=== PATIENT | female | born 1965 | race African-American/Black ===

== ENCOUNTER 2023-08-22 07:56 | Outpatient (REF) | payer OTHER, SELFPAY ==
--- NOTE | ~2023-08-22 | XR_ITS ---
EXAMINATION: XR SHOULDER, LEFT CLINICAL INFORMATION: Pain. COMPARISON: None available. TECHNIQUE: AP external rotation, Grashey, scapular Y, and axillary views of the left shoulder. FINDINGS: No evidence of acute fracture. Glenohumeral and acromioclavicular alignment is anatomic with normal joint space. No abnormal soft tissue calcifications. No suspicious findings in the visualized left lung. XR/XR shoulder LT min 2V IMPRESSION: No acute osseous abnormality.
== END 2023-08-22 07:57 | disposition home or self-care (01) ==
LOC: HO.HOSX 07:56
PROVIDERS: Visit Provider Physician Assistant
DX: M75.102 Unspecified rotator cuff tear or rupture of left shoulder, not specified as traumatic (principal); Z87.828 Personal history of other (healed) physical injury and trauma
CPT/HCPCS: 73030

== ENCOUNTER 2023-08-22 13:25 | Outpatient (AMB) | payer OTHER, SELFPAY ==
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
[2023-08-22 14:16] VITALS: BMI 24.6
== END 2023-08-22 14:37 | disposition home or self-care (01) ==
PROVIDERS: PCP Internal Medicine; Visit Provider Physician Assistant
DX: M75.102 Unspecified rotator cuff tear or rupture of left shoulder, not specified as traumatic (principal)
CPT/HCPCS: 99204

== ENCOUNTER 2023-10-03 13:32 | Outpatient (AMB) | payer OTHER, SELFPAY ==
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
== END 2023-10-03 13:58 | disposition home or self-care (01) ==
PROVIDERS: PCP Internal Medicine
DX: R20.0 Anesthesia of skin (principal); M77.12 Lateral epicondylitis, left elbow; Y03.0XXA Assault by being hit or run over by motor vehicle, initial encounter; Z04.3 Encounter for examination and observation following other accident
CPT/HCPCS: 99213

== ENCOUNTER → 2023-10-03 13:32 | Outpatient (BNVA) | payer OTHER, SELFPAY | PROVIDERS: PCP Internal Medicine ==

== ENCOUNTER 2023-11-03 10:51 | Outpatient (REF) | payer OTHER, SELFPAY ==
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
== END 2023-11-03 10:52 | disposition home or self-care (01) ==
LOC: HO.NEURO 10:51
PROVIDERS: PCP Internal Medicine
DX: R20.0 Anesthesia of skin (principal); R20.2 Paresthesia of skin
CPT/HCPCS: 95886; 95909

== ENCOUNTER → 2023-11-03 10:58 | Outpatient (BNV) | payer OTHER, SELFPAY | PROVIDERS: PCP Internal Medicine; Visit Provider Physical Medicine & Rehabilitation | DX: R20.0 Anesthesia of skin (principal); R20.2 Paresthesia of skin; M79.642 Pain in left hand | CPT/HCPCS: 95886; 95909 ==

== ENCOUNTER 2023-12-02 18:36 | Outpatient (REF) | payer OTHER, SELFPAY ==
--- NOTE | ~2023-12-02 | MR_ITS ---
EXAMINATION: MRI LEFT SHOULDER WITHOUT CONTRAST CLINICAL INFORMATION: M75.102 - Unspecified rotator cuff tear or rupture of left shoulder COMPARISON: Radiographs 08/22/2023 TECHNIQUE: MRI of the shoulder without contrast is performed on a 1.5 Perla high-field scanner. FINDINGS: ROTATOR CUFF: There is an interstitial insertional partial tear involving the supraspinatus/infraspinatus tendon junctional fibers measuring 6 mm in AP dimension (concealed interstitial delamination). The rotator cuff is otherwise intact. No muscle atrophy or fatty infiltration. BICEPS: Normal. CORACOACROMIAL ARCH: The undersurface of the acromion is flat with no subacromial spur. Minimal acromioclavicular osteoarthritis. LABRUM/CAPSULE: Normal. GLENOHUMERAL JOINT/MARROW: No focal articular cartilage defect. No joint effusion. ADDITIONAL FINDINGS: None. MR/MR shoulder LT wo con IMPRESSION: 1. Small interstitial insertional partial tear of the supraspinatus/infraspinatus tendon junctional fibers. 2. Minimal acromioclavicular osteoarthritis. Electronically signed by: Jake Mcbride MD 12/20/2023 11:54 AM ABHINAV
== END 2023-12-02 18:37 | disposition home or self-care (01) ==
LOC: HO.MRI 18:36
PROVIDERS: PCP Internal Medicine; Visit Provider Physician Assistant
DX: M75.102 Unspecified rotator cuff tear or rupture of left shoulder, not specified as traumatic (principal)
CPT/HCPCS: 73221

== ENCOUNTER 2024-01-23 13:32 | Outpatient (AMB) | payer OTHER, SELFPAY ==
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
== END 2024-01-23 14:31 | disposition home or self-care (01) ==
PROVIDERS: PCP Internal Medicine; Visit Provider Physician Assistant
DX: M77.12 Lateral epicondylitis, left elbow (principal); M75.102 Unspecified rotator cuff tear or rupture of left shoulder, not specified as traumatic; R20.0 Anesthesia of skin; R20.2 Paresthesia of skin
CPT/HCPCS: 99214

== ENCOUNTER → 2024-01-23 13:32 | Outpatient (BNVA) | payer OTHER, SELFPAY | PROVIDERS: PCP Internal Medicine; Visit Provider Physician Assistant ==

== ENCOUNTER 2024-02-21 13:23 | Outpatient (AMB) | payer OTHER, SELFPAY ==
[2024-02-21 13:33] VITALS: BMI 24.6
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
== END 2024-02-21 14:42 | disposition home or self-care (01) ==
PROVIDERS: PCP Internal Medicine; Visit Provider Orthopaedic Surgery
DX: M77.12 Lateral epicondylitis, left elbow (principal); R20.0 Anesthesia of skin; R20.2 Paresthesia of skin
CPT/HCPCS: 99215